=== PATIENT | male | born 1945 ===

== ENCOUNTER 2024-09-06 05:23 | Day surgery (SDC) | payer OTHER ==
[2024-08-30 11:25] LABS: HEMATOCRIT 39.6 % (39.0-48.0); HEMOGLOBIN 13.2 g/dL (13-16.00); MEAN CELL VOLUME 92.1 fL (80.0-100.00); MEAN CORPUSCULAR HEMOGLOBIN 30.8 pg (27.00-32.0); MEAN CORPUSCULAR HGB CONC 33.5 g/dl (32.0-36.0); PLATELET COUNT 208 K/uL (150-450); RED CELL DISTRIBUTION WIDTH 13.8 % (11.5-14.5)
[2024-08-30 11:33] LABS: PH,URINE 5.5 (5.0-8.0); URINE APPEARANCE Clear; URINE BILIRRUBIN Negative (NEGATIVE); URINE BLOOD Negative; URINE COLOR Yellow; URINE GLUCOSE Negative (NEGATIVE); URINE KETONE Negative (NEGATIVE); URINE LEUKOCYTE Trace; URINE NITRATE Negative; URINE PROTEIN Negative (NEGATIVE); URINE UROBILINOGEN 0.2 E.U./dl
[2024-08-30 11:38] LABS: URINE BACTERIA 8.5 uL (0.0-1933); URINE EPITHELIAL CELLS 10.7 uL (0.0-38.8); URINE RBC 2.3 uL (0.0-20.8); URINE WBC 3.9 uL (0.0-23.2)
[2024-08-30 11:44] LABS: URINE CAST 0.29 uL (0.0-1.40)
[2024-08-30 11:49] LABS: INR 1.08; PARTIAL THROMBOPLASTIN TIME 26.8 SECONDS (22.0-34.0); PROTHROMBIN TIME 11.7 SECONDS (9.0-11.5)
[2024-08-30 12:28] LABS: ALBUMIN 4.2 gm/dL (3.4-5.0); CALCIUM 9.5 mg/dL (8.5-10.1); CREATININE SERUM 1.24 mg/dL (0.70-1.30); GFR 56.53; PHOSPHOROUS 3.5 mg/dL (2.5-4.9); POTASSIUM 4.14 mEq/L (3.5-5.1)
[2024-08-30 12:54] VITALS: BP 157/75
[~2024-09-06] VITALS: Ht 157.5 cm; Wt 68.0 kg
[~2024-09-06 05:23] MED LIST: ACIPHEX20 MG PO; CHILDREN'S ASPI81 MG PO; ENALAPRIL MALEAT5 MG PO; FAMOTIDINE40 MG PO; GLIMEPIRIDE1 MG; PROTONIX40 MG PO; ROSUVASTATIN CA20 MG PO; SURFAK240 M1 PO; TAMS0.4C PO; ZOLPIDEM TARTRA10 MG PO
[2024-09-06] MEDS ORDERED: LIDOCAINE HCL 1%/EPINEPHRINE 20ML VIAL IJ ONE (06:53)
[2024-09-06] MEDS ORDERED: POVIDONE-IODINE SCRUB 118 ML BOTT TOP ONE (06:53)
[2024-09-06] MEDS ORDERED: POVIDONE-IODINE 118 ML BOTT TOP ONE (06:53)
[2024-09-06] MEDS ORDERED: EPINEPHRINE HCL/PF 1 MG/ML AMPUL ONE (06:53)
[2024-09-06] MEDS ORDERED: CEFAZOLIN SODIUM 1,000 MG VIAL ONE (06:53)
[2024-09-06] MEDS ORDERED: DEXAMETHASONE SODIUM PHOSPHATE 4 MG/ML VIAL ONE (10:30)
[2024-09-06] MEDS ORDERED: CIPROFLOXACIN2.5 ML OTIC (10:41)
[2024-09-06] MEDS ORDERED: CEPHALEXIN500 MG PO (10:42)
[2024-09-06] MEDS ORDERED: BACITRACIN 28.35 GM OINT.TUBE TOP ONE (11:30)
[2024-09-06] MEDS ORDERED: CIPROFLOXACIN HCL 0.175 MG/DR DROPS OP ONE (12:15)
== END 2024-09-06 13:25 | disposition home or self-care (01) ==
LOC: CIR.AMB 05:23
PROVIDERS: ATTEND Otolaryngology Otology & Neurotology
DX: H80.81 Other otosclerosis, right ear (principal); H90.11 Conductive hearing loss, unilateral, right ear, with unrestricted hearing on the contralateral side; D48.5 Neoplasm of uncertain behavior of skin; E11.9 Type 2 diabetes mellitus without complications